=== PATIENT | male | born 1955 | race Hispanic/Latino ===

== ENCOUNTER 2023-05-19 03:01 | Emergency (ER) | payer OTHER ==
--- OUTSIDE RECORDS SUMMARY | 2023-05-19 03:05 | XMS REPORT | Continuity of Care Document ---
:1955 Author Organization [facility] t Address [address] [place] [address] Care Team Providers Name Role Phone Asked, No Pcp Primary Care Physician Unavailable ALEX KUMARI Attending Clinician Unavailable Apoorva-Mbayo_A_AH Attending Clinician Unavailable Apoorva-Mbayo_A_AH Admitting Clinician Unavailable Payers Payer Name Policy Type Policy Number Effective Date Expiration Date S angelo [facility] [place] - [id number] [employer] 00:00:00 (MEDICARE REPLACEMENT/ADVANT AGE - HMO) Problems This patient has no known problems. Allergies, Adverse Reactions, Alerts This patient has no known allergies or adverse reactions. Social History Social Habit Start Date Stop Date Quantity Comments Source [facility] Tobacco use and 2020-12-20 2020-12-20 Smokeless tobacco [facility] 00:[facility]00:00 non-user Hospital Alcohol intake 2020-12-20 2020-12-20 Current drinker [facility] 00:00:00 00:00:00 of alcohol Hospital (finding) History of Social 2020-12-20 2020-12-[address] function 00:00:00 00:00:00 Hospital Alcohol Comment 2020-12-20 2020-12-20 occasional [facility] 00:[facility] 00:[facility]:00 Hospital Sex Assigned At [birth year] [facility] 00:[facility]00 [facility] Smoking Status Start Date Stop Date Source Never smoked tobacco [facility] Medications This patient has no known medications. Procedures This patient has no known procedures. Plan of Care Planned Activity Planned Date Details Comments Source Future Scheduled 2023-05-19 Screening for [facility] Test 03:04:39 malignant neoplasm of colon (procedure) [code = 157566018] Future Scheduled 2023-05-19 Screening for [facility] Test 03:04:39 malignant neoplasm of colon (procedure) [code = [id number]] Future Scheduled 2023-05-19 Screening for [facility] Test 03:04:39 malignant neoplasm of colon (procedure) [code = [id number]] Future Scheduled 2023-05-19 COVID-19 VACCINE (#1) [facility] Test 03:04:39 [code = COVID-19 VACCINE (#1)] Future Scheduled 2023-05-19 Hepatitis C screening [facility] Test 03:04:39 (procedure) [code = [id number]] Future Scheduled 2023-05-19 Screening for [facility] Test 03:04:39 malignant neoplasm of colon (procedure) [code = [id number]] Future Scheduled 2023-05-19 Screening for [facility] Test 03:04:39 malignant neoplasm of colon (procedure) [code = [id number]] Future Scheduled 2023-05-19 SHINGLES VACCINES (1 [facility] Test 03:04:39 of 2) [code = SHINGLES VACCINES (1 of 2)] Future Scheduled 2023-05-19 65+ [facility] [facility] Test 03:04:39 VACCINE (1 - PCV) [code = 65+ PNEUMOCOCCAL VACCINE (1 - PCV)] Future Scheduled 2023-05-19 INFLUENZA VACCINE [facility] Test 03:04:39 [code = INFLUENZA VACCINE] Encounters Start End Encounter Admission Attending Care Care Encounter Source Date/Time Date/Time Type Type Clinicians Facility Department ID 2020-12-20 2020-12-20 Emergency LEANDR[facility]ANG, [facility] [id number] 00:00:00 00:00:00 AATIF [address] 2019-11-18 2019-11-18 [facility] [id number] 07:15:00 07:15:00 _A_AH [id number] [facility] 2019-11-18 2019-11-18 [facility] [id number] 07:15:00 07:15:00 _A_ [id number] [facility] Pract[facility] Results This patient has no known results.
[2023-05-19 04:06] LABS: Absolute Lymphocytes (CBC) 1.1 K/uL (0.7-4.9); Hematocrit 37.6 % (39.6-49.0); Lymphocytes % 23.4 % (15.3-44.8); MCV 93.9 fL (80-100); MPV 8.5 fL (7.6-11.3); Platelets 130 thou/uL (152-406)
[2023-05-19 04:23] LABS: Protime INR 1.45
[2023-05-19] MEDS ORDERED: CEFAZOLIN SODIUM 1 GM/VIAL ONE (04:35)
[2023-05-19] MEDS ORDERED: NA CHLORIDE 0.9% 100 ML ONE (04:35)
[2023-05-19] MEDS ORDERED: TDAP (DIPHTH,PERTUSS(ACELL),TET VAC) 0.5 ML VIAL IMVAC ONE (04:35)
[2023-05-19] MEDS ORDERED: NA CHLORIDE 0.9% 1,000 ML ONE (04:36)
[2023-05-19 04:41] LABS: Albumin 3.5 g/dL (3.4-5.0); Bilirubin Direct 0.3 mg/dL (0-0.2); Bilirubin Indirect, Calculated 0.8 mg/dL (0.2-0.8); Bilirubin Total 1.1 mg/dL (0.2-1.0); Potassium 3.5 mEq/L (3.5-5.1); Protein, Total 6.7 g/dL (6.4-8.2); Troponin High Sensitivity 7.5 pg/mL (<58.9)
--- NOTE | 2023-05-19 05:54 | EDPHYS ---
Physician Documentation [facility] Name: Stephan Zhang Age: 68 yrs Sex: Male : 1955 Arrival Date: 05/19/2023 Time: 03:01 Bed 13 Private MD: ED Physician Mavis Sadler HPI: 05/19 05:03 This 68 yrs old Male presents to ER via Ambulatory with complaints of FELL sd2 DOWN FLIGHT OF STAIRS. 05:03 68-year-old male presents with chief complaint of injuries status post fall down the sd2 stairs tonight just prior to arrival. His family at bedside reports that the patient had had some alcohol to drink and last this bleeding following backwards down the stairs while he was trying to walk up them. They state he fell from a height of about 8 stairs at. He did hit his head and was noted to have a scalp laceration. Denies LOC. Does not take blood thinners.. Historical: - Allergies: 04:08 No Known Allergies; pf1 - PMHx: 04:08 Diabetes mellitus; Hypertensive disorder; head bleed; pf1 - Immunization history:: Adult Immunizations up to date, Client reports receiving the 2nd dose of the Covid vaccine, 3 doses Last tetanus immunization: > 10 years ago Flu vaccine is not up to date. - Social history:: Smoking status: Patient denies any tobacco usage or history of. Patient uses alcohol, occasionally. Patient/guardian denies using street drugs. ROS: 05:03 Constitutional: Negative for fever, chills, and weight loss, Eyes: Negative for injury, sd2 pain, redness, and discharge, Cardiovascular: Negative for chest pain, palpitations, and edema, Respiratory: Negative for shortness of breath, cough, wheezing. Abdomen/GI: Negative for abdominal pain, nausea, vomiting, diarrhea. MS/Extremity: Negative for injury and deformity, Skin: Negative for injury, rash, and discoloration. Exam: 05:02 ECG was reviewed by the Attending Physician. NSR, rate 82, no STEMI criteria sd2 05:03 Constitutional: This is a well developed, well nourished patient who is awake, alert, sd2 and in no acute distress. Head/Face: Normocephalic, scattered abrasions noted to face with scalp laceration present to the posterior aspect Eyes: EOMI, normal conjunctiva bilaterally Chest/axilla: Normal chest wall appearance and motion. Nontender with no deformity. Cardiovascular: Regular rate and rhythm with a normal S1 and S2. No gallops, murmurs, or rubs. 2+ distal pulses. Respiratory: Lungs have equal breath sounds bilaterally, clear to auscultation and percussion. No rales, rhonchi or wheezes noted. No increased work of breathing, no retractions or nasal flaring. Abdomen/GI: Soft, non-tender, with normal bowel sounds. No guarding or rebound. No evidence of tenderness throughout. Puncture wounds noted to L lateral abdominal wall. Once probed, these puncture wounds track at least 3" depth johnson into the abdomen. Skin: Warm, dry with normal turgor. MS/ Extremity: Pulses equal, no cyanosis. Neurovascular intact. Left thumb with partial traumatic amputation, skin avulsion noted to R great toes Psych: Awake, alert, with orientation to person, place and time. Behavior, mood, and affect are within normal limits. Vital Signs: 03:10 BP 139 / 69; Pulse 84; Resp 18; Temp 98.6; Pulse Ox 95% on R/A; Weight 93.44 kg; Height pf1 6 ft. 0 in. ; Pain 0/10; 05:17 BP 135 / 69; Pulse 87; Resp 14; Pulse Ox 97% on R/A; ll3 07:15 BP 141 / 75; Pulse 90; Resp 16; Pulse Ox 97% on R/A; db 08:00 BP 141 / 74; Pulse 90; Resp 16; Pulse Ox 97% on R/A; db 03:10 Body Mass Index 27.94 (93.44 kg, 182.88 cm) pf1 03:10 Pain Scale: Adult pf1 Laceration: 06:23 Wound Repair of 4cm ( 1.6in ) subcutaneous laceration to scalp. Irregularly shaped.. sd2 Hemostasis noted.. Distal neuro/vascular/tendon intact. Wound prep: Simple cleansing by nurse. Skin closed with 6 1-0 Deejay using staple gun. Patient tolerated well. MDM: 03:12 Patient medically screened. sd2 05:03 Data reviewed: vital signs, nurses notes, lab test result(s), EKG, radiologic studies. sd2 05:51 Consideration of Admission/Observation Escalation of care including sd2 admission/observation considered. Historians other than the Patient: Spouse/Significant Other: provides further history. Care significantly affected by the following chronic conditions: Diabetes, Hypertension. Counseling: I had a detailed discussion with the patient and/or guardian regarding the historical points, exam findings, and any diagnostic results supporting the discharge/admit diagnosis, lab results, radiology results, the need to transfer to another facility, for higher level of care. ED course: Labs and imaging reviewed. Imaging with open comminuted fracture of thumb. Ancef given and tetanus updated. Wound care performed. Also, possible hemoperitoneum and mesenteric injury on CT scan. Due to no trauma service at this facility, will need transfer to a trauma center. Also, possible pancreatitis. Lipase added on to labs at this time. . 06:23 ED course: Discussed case with [facility], Dr. Ambriz, who accepts sd2 the patient as a transfer at this time. Due to depth of puncture wounds, open fracture, alcohol intoxication and inability to rule out hemoperitoneum and mesenteric injury, pt would be best served at a trauma center to fully rule out these possibilities prior to discharging him home. Wound care performed and scalp laceration closed. Thumb and abdominal wounds not sutured but bandages applied so that the team at [place] can fully evaluate his injuries. . 05/19 03:42 Order name: Basic Metabolic Panel; Complete Time: 05:00 cp 05/19 03:42 Order name: CBC with Diff; Complete Time: 05:00 cp 05/19 03:42 Order name: LFT's; Complete Time: 05:00 cp 05/19 03:42 Order name: NT PRO-BNP; Complete Time: 05:00 cp 05/19 03:42 Order name: PT-INR; Complete Time: 05:00 cp 05/19 03:42 Order name: Troponin HS; Complete Time: 05:00 cp 05/19 03:42 Order name: ETOH Level; Complete Time: 05:00 cp 05/19 03:42 Order name: Ptt, Activated; Complete Time: 05:00 cp 05/19 03:43 Order name: Type And Screen; Complete Time: 05:00 cp 05/19 05:47 Order name: Lipase; Complete Time: 06:05 sd2 05/19 06:36 Order name: ABO/RH no charge; Complete Time: 06:37 EDMS 08/20 06:44 Order name: CREATININE WHOLE BLOOD EDMS 05/19 03:42 Order name: XRAY Chest (1 view) cp 05/19 03:42 Order name: CT Traumagram (Head C Spine CAP W Con) cp 05/19 03:42 Order name: XRAY Hand LEFT 3 View cp 05/19 03:42 Order name: EKG; Complete Time: 03:43 cp 05/19 03:42 Order name: Cardiac monitoring; Complete Time: 04:13 cp 05/19 03:42 Order name: EKG - Nurse/Tech; Complete Time: 04:13 cp 05/19 03:42 Order name: IV Saline Lock; Complete Time: 03:57 cp 05/19 03:42 Order name: Labs collected and sent; Complete Time: 03:57 cp 05/19 03:42 Order name: O2 Per Protocol; Complete Time: 03:57 cp 05/19 03:42 Order name: O2 Sat Monitoring; Complete Time: 03:57 cp 05/19 03:43 Order name: IV; Complete Time: 06:00 cp Administered Medications: 04:51 Drug: NS 0.9% IV 1000 ml Route: IV; Rate: 1 bolus; Site: right antecubital; 3 07:00 Follow up: Response: No adverse reaction; IV Status: Completed infusion db 04:52 Drug: Tetanus-Diphtheria Toxoid IM Adult 0.5 ml {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 ll3 Exp: 10/17/2023. Lot #: [id number]. } Route: IM; Site: right deltoid; 08:32 Follow up: Response: No adverse reaction db 04:52 Drug: ceFAZolin IVPB 2 grams Route: IVPB; Infused Over: 30 mins; Site: right ll3 antecubital; 07:00 Follow up: Response: No adverse reaction; IV Status: Completed infusion db Disposition Summary: 05/19/23 05:54 Transfer Ordered Transfer Location: [facility] sd2 Reason: Higher level of care sd2 Condition: Stable sd2 Problem: new sd2 Symptoms: are unchanged sd2 Accepting Physician: Dr. Ambriz(05/19/23 08:32) db Diagnosis - Fall down stairs sd2 - Alcohol use sd2 - Puncture wound to abdomen sd2 - Open comminuted fracture of distal phalanx of left thumb sd2 - Acute pancreatitis sd2 Forms: - Medication Reconciliation Form sd2 - SBAR form sd2 Signatures: Dispatcher [employer] EDMS Alvaro Ro PA PA cp Loubet, Lynsea, RN RN ll3 Mavis Sadler MD MD sd2 Leonela Dee RN RN db Mini Reynoso RN RN pf1 Corrections: (The following items were deleted from the chart) 06:25 05:03 Constitutional: This is a well developed, well nourished patient who is awake, sd2 alert, and in no acute distress. Head/Face: Normocephalic, scattered abrasions noted to face with scalp laceration present to the posterior aspect Eyes: EOMI, normal conjunctiva bilaterally Chest/axilla: Normal chest wall appearance and motion. Nontender with no deformity. Cardiovascular: Regular rate and rhythm with a normal S1 and S2. No gallops, murmurs, or rubs. 2+ distal pulses. Respiratory: Lungs have equal breath sounds bilaterally, clear to auscultation and percussion. No rales, rhonchi or wheezes noted. No increased work of breathing, no retractions or nasal flaring. Abdomen/GI: Soft, non-tender, with normal bowel sounds. No guarding or rebound. No evidence of tenderness throughout. Puncture wounds noted to L lateral abdominal wall. Skin: Warm, dry with normal turgor. MS/ Extremity: Pulses equal, no cyanosis. Neurovascular intact. Left thumb with partial traumatic amputation, skin avulsion noted to R great toes Psych: Awake, alert, with orientation to person, place and time. Behavior, mood, and affect are within normal limits. sd2 06:27 05:54 [facility] sd2 sd2 08:32 06:27 Dr. Ambriz sd2 db
--- NOTE | 2023-05-19 05:54 | ER ---
Nurse's Notes [facility] Name: Stephan Zhang Age: 68 yrs Sex: Male : 1955 Arrival Date: 05/19/2023 Time: 03:01 Bed 13 Private MD: Diagnosis: Fall down stairs;Alcohol use;Puncture wound to abdomen;Open comminuted fracture of distal phalanx of left thumb;Acute pancreatitis Presentation: 05/19 03:10 Chief complaint: Spouse and/or significant other states: patient falling down 8 steps pf1 when his flip flop got stuck on the stairs,onset 30 minutes. Patient denies any loss of consciousness. Patient stated has 3 beers earlier tonight. Patient has left scalp laceration, left eyebrow contusion, left forearm abrasion, 2 lacerations to left abdominal region, skin tear to right forearm, abrasion to right foot 1 digit and left hand 1st digit partial amputation. 03:10 Coronavirus screen: Vaccine status: Patient reports receiving the 2nd dose of the covid pf1 vaccine. 3 doses of pfizer Client denies travel out of the [place] in the last 14 days. At this time, the client does not indicate any symptoms associated with coronavirus-19. Ebola Screen: Patient negative for fever greater than or equal to 101.5 degrees Fahrenheit, and additional compatible Ebola Virus Disease symptoms. Initial Sepsis Screen: Does the patient meet any 2 criteria? No. Patient's initial sepsis screen is negative. Does the patient have a suspected source of infection? No. Patient's initial sepsis screen is negative. Risk Assessment: Do you want to hurt yourself or someone else? Patient reports no desire to harm self or others. 03:10 Method Of Arrival: Ambulatory pf1 03:10 Acuity: DOLLY 2 pf1 Historical: - Allergies: 04:08 No Known Allergies; pf1 - PMHx: 04:08 Diabetes mellitus; Hypertensive disorder; head bleed; pf1 - Immunization history:: Adult Immunizations up to date, Client reports receiving the 2nd dose of the Covid vaccine, 3 doses Last tetanus immunization: > 10 years ago Flu vaccine is not up to date. - Social history:: Smoking status: Patient denies any tobacco usage or history of. Patient uses alcohol, occasionally. Patient/guardian denies using street drugs. Screenin:18 Abuse screen: Denies threats or abuse. Denies injuries from another. Nutritional ll3 screening: No deficits noted. Tuberculosis screening: No symptoms or risk factors identified. 05:38 [facility] ED Fall Risk Assessment (Adult) History of falling in the last 3 months, ll3 including since admission Yes- single mechanical fall (1 pt) Confusion or Disorientation No (0 pts) Intoxicated or Sedated Yes (3 pts) Impaired Gait No (0 pts) Mobility Assist Device Used No (0 pt) Altered Elimination No (0 pt) Score/Fall Risk Level 3 or more points = High Risk Oriented to surroundings, Maintained a safe environment, Educated pt \T\ family on fall prevention, incl call for assistance when getting out of bed, Assessed \T\ reinforced patient's understanding of fall precautions. Assessment: 03:30 General: Appears uncomfortable, Behavior is calm, cooperative, Smells of alcohol. Pain: ll3 Complains of pain in face, chest, abdomen and dorsal aspect of distal phalanx of left thumb Pain does not radiate. Neuro: Level of Consciousness is awake, alert, obeys commands, Oriented to person, place, time, situation. Cardiovascular: Rhythm is sinus rhythm. Derm: Wound noted scalp, abdomen and left hand Wound is Laceration to left temporal area, puncture wounds to left abdomen, partial amputation to left thumb Bruising that is dark purple, on chest and abdomen. 03:30 Musculoskeletal: Partial amputation to left thumb. ll3 07:00 Reassessment: Patient appears in no apparent distress at this time. Patient and/or db family updated on plan of care and expected duration. Pain level reassessed. Patient is alert, oriented x 3, equal unlabored respirations, skin warm/dry/pink. PENDING EMS FOR TRANSFER. 08:29 Reassessment: Patient appears in no apparent distress at this time. Patient and/or db family updated on plan of care and expected duration. Pain level reassessed. Patient is alert, oriented x 3, equal unlabored respirations, skin warm/dry/pink. FAMILY INFORMED WHERE PATIENT IS BEING TRANSPORTED AND PROVIDED ADDRESS. PATIENT ABLE TO STAND AND WALK TO EMS STRETCHER. PATIENT PICKED UP BY [facility]. Vital Signs: 03:10 BP 139 / 69; Pulse 84; Resp 18; Temp 98.6; Pulse Ox 95% on R/A; Weight 93.44 kg; Height pf1 6 ft. 0 in. ; Pain 0/10; 05:17 BP 135 / 69; Pulse 87; Resp 14; Pulse Ox 97% on R/A; ll3 07:15 BP 141 / 75; Pulse 90; Resp 16; Pulse Ox 97% on R/A; db 08:00 BP 141 / 74; Pulse 90; Resp 16; Pulse Ox 97% on R/A; db 03:10 Body Mass Index 27.94 (93.44 kg, 182.88 cm) pf1 03:10 Pain Scale: Adult pf1 ED Course: 03:08 Patient arrived in ED. kj1 03:12 Mavis Sadler MD is Attending Physician. sd2 03:40 Alvaro Ro PA is PHCP. cp 03:58 Initial lab(s) drawn, by me, sent to lab. Inserted saline lock: 20 gauge in right ll3 antecubital area, using aseptic technique. Blood collected. 03:58 Missed attempt(s): 20 gauge in right hand. ll3 04:08 Triage completed. pf1 04:16 XRAY Chest (1 view) In Process Unspecified. EDMS 04:16 XRAY Hand LEFT 3 View In Process Unspecified. EDMS 04:35 CT Traumagram (Head C Spine CAP W Con) In Process Unspecified. EDMS 05:18 Patient has correct armband on for positive identification. Bed in low position. Call ll3 light in reach. Side rails up X 1. 05:19 No provider procedures requiring assistance completed. ll3 05:38 Patient placed in an exam room, on a stretcher, on sand mixer, on pulse oximetry. ll3 05:51 Initiated transfer to [facility], spoke with Luz Maria Villalba. wm 06:00 Inserted saline lock: 18 gauge in left antecubital area, using aseptic technique. pf1 06:26 administrative approval given by Luz Maria Villalba Rn/ patient has been accepted to [facility] ER/ Dr. Goldy Ambriz has accepted the patient in transfer/ report to be called to [phone]. 08:05 Dressings: Kerlix X 1; dorsal aspect of distal phalanx of left thumb non-adherent db dressing x 1 left hand 4X4s X 1; abdomen. 08:28 Leonela Dee, LOIS is Primary Nurse. db 08:29 Patient transferred, IV remains in place. db 08:29 Provided Education on: TRANSFER. 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 ll3 Exp: 10/17/2023. Lot #: [id number]. } Route: IM; Site: right deltoid; 08:32 Follow up: Response: No adverse reaction db 04:52 Drug: ceFAZolin IVPB 2 grams Route: IVPB; Infused Over: 30 mins; Site: right ll3 antecubital; 07:00 Follow up: Response: No adverse reaction; IV Status: Completed infusion db Medication: 05:18 Vaccine Information Statement (VIS) provided today. Questions and/or concerns ll3 addressed. VIS edition date: May 05, 2021. Outcome: 05:54 ER care complete, transfer ordered by . sd2 08:29 Transferred by ground EMS to [facility], Transfer form completed. X-rays sent db w/ patient. 08:29 Condition: stable 08:29 Instructed on the need for transfer. 08:32 Patient left the ED. db Signatures: Dispatcher [employer] EDMS Alvaro Ro PA PA cp Botello, Elizabeth eb Jackson, Kandis kj1 Belén Guevara Lynsea, RN RN ll3 Mavis Sadler MD MD sd2 Leonela Dee RN RN db Mini Reynoso RN RN pf1 Corrections: (The following items were deleted from the chart) 03:52 03:50 Chief complaint: pf1 pf1 04:08 03:10 Chief complaint: pf1 pf1 04:08 03:51 Chief complaint: pf1 pf1 04:08 03:53 Chief complaint: pf1 pf1 05:18 05:18 [facility] ED Fall Risk Assessment (Adult) History of falling in the last 3 months, ll3 including since admission No falls in past 3 months (0 pts) Confusion or Disorientation No (0 pts) Intoxicated or Sedated No (0 pts) Impaired Gait No (0 pts) Mobility Assist Device Used No (0 pt) Altered Elimination No (0 pt) Score/Fall Risk Level 0 - 2 = Low Risk Oriented to surroundings, Maintained a safe environment, Educated pt \T\ family on fall prevention, incl call for assistance when getting out of bed, ll3 05:19 05:18 VIS not applicable for this client. ll3 ll3
[2023-05-19 08:59] VITALS: TEMP 98.6
[2023-05-19 09:00] VITALS: O2SAT 97
[2023-05-19 09:03] VITALS: BP 141/74
--- NOTE | 2023-05-20 12:08 | RAD REPORT ---
EXAM DESCRIPTION: CT - Head C Spine Cap W Con - 05/19/2023 6:43 am CLINICAL HISTORY: Fall down stairs TECHNIQUE: Contiguous axial CT images obtained through the brain without IV contrast. Coronal and sa gittal reformatted images were provided. This exam was performed according to our departmental dose-optimization program, which includes autom ated exposure control, adjustment of the mA and/or kV according to patient size and/or use of iterati ve reconstruction technique. COMPARISON: None available for comparison FINDINGS: Brain: No significant white matter changes. No focal mass effect. Fam-white matter differ entiation is within normal limits. No hemorrhage. Ventricles: No ventriculomegaly or midline shift. Extra-axial spaces: No extra-axial collection or hemorrhage. Paranasal sinuses and mastoid air cells: Bilateral maxillary mucous retention cysts. Bones: Unremarkable Soft tissues: Unremarkable IMPRESSION: No evidence of acute intracranial pathology. TECHNIQUE: Head C Spine Cap W Con CLINICAL HISTORY: Fall down stairs TECHNIQUE: Contiguous axial CT images obtained through the cervical spine without IV contrast. Cor onal and sagittal reformatted images also provided. This exam was performed according to our departmental dose-optimization program, which includes autom ated exposure control, adjustment of the mA and/or kV according to patient size and/or use of iterati ve reconstruction technique. COMPARISON: None available for comparison FINDINGS: Vertebra: No acute fracture or subluxation. Degenerative changes: Multilevel degenerative changes of the cervical spine with facet joint arthropa thy, narrowing of intervertebral disc spaces and disc osteophyte complexes. Prevertebral soft tissues: Unremarkable Lung apices: Clear IMPRESSION: 1. No acute cervical spine fracture. 2. Degenerative changes of the cervical spine. IPROCEDURE: Head C Spine Cap W Con CLINICAL HISTORY: Fall down stairs TECHNIQUE: Contiguous axial images obtained through the chest , abdomen and pelvis with IV contrast. Coronal and sagittal reformatted images provided. This exam was performed according to our departmental dose-optimization program, which includes autom ated exposure control, adjustment of the mA and/or kV according to patient size and/or use of iterati ve reconstruction technique. COMPARISON: No prior exams provided for comparison. FINDINGS: Lungs: No focal consolidation. Airways are patent. Pleura: No effusion. No pneumothorax. Heart and pericardium: Cardiomegaly.. No pericardial effusion. Mediastinum and tyrone: No pathologically enlarged lymph nodes. Lower neck and chest wall: Unremarkable Vessels: Unremarkable Bones: Unremarkable Liver: Unremarkable Gallbladder and biliary system: Unremarkable Pancreas: There is stranding of the peripancreatic soft tissue planes extending to the anterior parar enal spaces bilaterally. Mild acute pancreatitis must be suspected. Given the history of trauma mesen teric and retroperitoneal stranding secondary to mesenteric injury cannot be excluded. Follow-up may be helpful in assessing for the evolution of these findings Spleen: Unremarkable Adrenals: Unremarkable Kidneys: No evidence of urolithiasis or obstructive uropathy. Left renal cortical thinning and scarri ng. Incidental small left renal cyst. Gl : Small hiatal hernia. No obstruction. No appreciable mucosal thickening. Appendix: No findings to suggest acute appendicitis. Urinary bladder: Unremarkable Reproductive: Partially visualized right hydrocele. Lymph nodes: No pathologically enlarged lymph nodes. Peritoneum: Tracer fluid in the pelvis, nonspecific and abnormal for a male. In a setting of trauma, trace hemoperitoneum cannot be excluded which may be secondary to mesenteric or bowel injury. Follow- up recommended. No evidence of free intraperitoneal air. . Vessels: No abdominal aortic aneurysm. Abdominal wall: Open right inguinal ring with no herniated segments of bowel. Bones: Unremarkable IMPRESSION: 1. Trace fluid in the pelvis, nonspecific and abnormal for a male. In a setting of tra anselmo, trace hemoperitoneum cannot be excluded which could be secondary to small mesenteric or bowel in jury. Follow-up recommended. 2. Stranding of the peripancreatic soft tissue planes extending to the anterior pararenal spaces bi laterally. Mild acute pancreatitis must be suspected. Given the history of trauma mesenteric and retr operitoneal stranding secondary to mesenteric injury cannot be excluded. Follow-up may be helpful in assessing for the evolution of these findings. No evidence of free intraperitoneal air. Electronically signed by: Zac Reyes MD 05/19/2023 5:21 AM CDT Due to temporary technical issues with the PACS/Fluency reporting system, reports are being signed by the in house radiologist without review as a courtesy to ensure prompt reporting. The interpreting r adiologist is fully responsible for the content of the report.
--- NOTE | 2023-05-20 12:09 | RAD REPORT ---
EXAM DESCRIPTION: RAD - Hand Left 3 View - 05/19/2023 4:14 am CLINICAL HISTORY: PAIN TECHNIQUE: Three views of the left hand are submitted. COMPARISON: None available for comparison FINDINGS: Bones: Comminuted fracture of the distal phalanx of the thumb. Joints: Joint spaces are unremarkable. Mild osteoarthritic changes. Soft tissues: No radiopaque foreign bodies. IMPRESSION: Comminuted fracture of the distal phalanx of the thumb. Electronically signed by: Zac Reyes MD 05/19/2023 4:54 AM CDT Due to temporary technical issues with the PACS/Fluency reporting system, reports are being signed by the in house radiologist without review as a courtesy to ensure prompt reporting. The interpreting r adiologist is fully responsible for the content of the report.
--- NOTE | 2023-05-20 12:12 | RAD REPORT ---
EXAM DESCRIPTION: RAD - Chest Single View - 05/19/2023 4:14 am CLINICAL HISTORY: PAIN TECHNIQUE: Three views of the left hand are submitted. COMPARISON: None available for comparison FINDINGS: Bones: Comminuted fracture of the distal phalanx of the thumb. Joints: Joint spaces are unremarkable. Mild osteoarthritic changes. Soft tissues: No radiopaque foreign bodies. IMPRESSION: Comminuted fracture of the distal phalanx of the thumb. Electronically signed by: Zac Reyes MD 05/19/2023 4:54 AM CDT Due to temporary technical issues with the PACS/Fluency reporting system, reports are being signed by the in house radiologist without review as a courtesy to ensure prompt reporting. The interpreting r adiologist is fully responsible for the content of the report.
--- NOTE | 2023-05-20 18:00 | EKG ---
Test Date: 2023-05-19 Test Time: 04:08:49 [place]: FRANK MEASUREMENT RESULTS: Intervals: Rate: 82 IN: 180 QRSD: 98 QT: 386 QTc: 450 [place]: P: 64 IN: 180 QRS: -4 T: 20 INTERPRETIVE STATEMENTS: Normal sinus rhythm Normal ECG No previous ECG available for comparison Electronically Signed On 05-20-23 17:57:13 CDT by Jorge Cary
== END 2023-05-19 08:32 | disposition short-term general hospital (02) ==
LOC: ER 03:01
PROC: 0HQ0XZZ Repair Scalp Skin, External Approach (ICD-10-PCS; principal; 2023-05-19)
DX: S01.01XA Laceration without foreign body of scalp, initial encounter (principal); S31.139A Puncture wound of abdominal wall without foreign body, unspecified quadrant without penetration into peritoneal cavity, initial encounter; F10.90 Alcohol use, unspecified, uncomplicated; S62.522B Displaced fracture of distal phalanx of left thumb, initial encounter for open fracture; W10.8XXA Fall (on) (from) other stairs and steps, initial encounter; K85.90 Acute pancreatitis without necrosis or infection, unspecified; Z23 Encounter for immunization; E11.9 Type 2 diabetes mellitus without complications; I10 Essential (primary) hypertension
CPT/HCPCS: 96365; 93005; 85025; 80048; 36415; 86900; 86850; 85610; 82565; 86901; 80076; 85730; 84484; 83690; 83880; 70450; 72125; 71260; 74177; 71045; 73130; 90471; 99285; 96366; 82077; 12002; Q9967; J7030; J0690